=== PATIENT | female | born 1995 | race Caucasian/White ===

== ENCOUNTER 2018-04-14 08:02 | Emergency (ER) | payer OTHER ==
[~2018-04-14] VITALS: Ht 180.3 cm; Wt 142.4 kg
[~2018-04-14 08:02] MED LIST: NUVARING VAGIN1 EACH; PROTONIX40 MG PO
== END 2018-04-14 10:51 | disposition home or self-care (01) ==
LOC: ED 08:02 → FBCO 08:03 → ED 08:03
DX: O99.283 Endocrine, nutritional and metabolic diseases complicating pregnancy, third trimester (principal); E86.0 Dehydration; O99.89 Other specified diseases and conditions complicating pregnancy, childbirth and the puerperium; R55 Syncope and collapse; O99.353 Diseases of the nervous system complicating pregnancy, third trimester; G43.909 Migraine, unspecified, not intractable, without status migrainosus; Z79.899 Other long term (current) drug therapy; Z3A.28 28 weeks gestation of pregnancy
CPT/HCPCS: 80053; 81001; 85025; 96360; 96361; 99284; J7030

== ENCOUNTER 2018-06-24 09:06 | Inpatient (IN) | payer OTHER ==
[~2018-06-24] VITALS: Ht 180.3 cm; Wt 145.0 kg
--- NOTE | ~2018-06-24 | OR ---
[facility] [address], [place] [address] Draft DATE OF OPERATION: 06/24/2018 SURGEON: Marybeth Portillo MD METALLOGRAPHIC TECHNICIAN: Iker Gonzalez MD PREOPERATIVE DIAGNOSES: Term , breech presentation, failed external breech version, probable abruption. POSTOPERATIVE DIAGNOSES: Term , breech presentation, failed external breech version, probable abruption. Delivered. PROCEDURE PERFORMED: External breech version, primary section with low segment transverse uterine incision. ANESTHESIA: Epidural. ESTIMATED BLOOD LOSS: 800 mL. DRAINS: Booker catheter. INDICATIONS AND FINDINGS: The patient is a 22-year-old female, 1, para 0, admitted at 38 and 3/7th weeks for external breech version. She was found to be breech on her evaluation in the office yesterday. She was counseled and the decision was made to proceed with the version. At the time of version, which was done after her epidural. A forward roll was attempted twice with minimal success. Baby's heart tones did look reassuring during that attempt. A reverse roll was then attempted with no success as well. heart tones were reassuring at that point, and as the patient was being prepared to move back to her room, she was found to have a moderate amount of bright red bleeding per vagina. At that point, it was felt that she likely had an abruption and that delivery was indicated at this time. She underwent a primary section with low segment transverse uterine incision with delivery of a little girl from the right sacrum anterior as a bashir breech with Apgars of 8 and 9 and weight of 6 pounds 6 ounces. There was quite a PATIENT NAME: TROY CABALLERO OPERATIVE REPORT DATE OF : [birth year] REPORT #: [id number] PHYSICIAN: MARYBETH PORTILLO MD PCP: MARYBETH PORTILLO MD REPORT IS CONFIDENTIAL AND NOT TO BE RELEASED WITHOUT AUTHORIZATION [facility] [address], [place] [address] Draft bit of bleeding on entering the uterus. There was no obvious abruption with removal of the placenta. The uterus, tubes, and ovaries appeared normal. DESCRIPTION OF PROCEDURE: The patient was prepped and draped in the supine position. A Pfannenstiel skin incision was made and carried down through the fascia. The incision was extended laterally. The inferior and superior fascial flaps were then created. The muscles were bluntly divided and the peritoneum entered bluntly. The incision was extended. The Nguyễn retractor was placed and a knife was used to score the upper aspect of the peritoneal reflection. The baby was delivered with the above findings and handed off to the pediatric staff in attendance. The placenta was removed manually. The uterus explored with a lap tape assuring no remaining fragments. The edges of the incision were identified and the uterus was closed in 2 layers using #0 Monocryl. The first layer was a running locking stitch and the second was a vertical imbricating stitch. A [id number] of this suture was required in the midportion for control of bleeding. The abdomen was then copiously irrigated and inspected and good hemostasis was noted. The retractor was removed and the peritoneum identified. An ACell patch was laid over the lower segment to aid in healing. The peritoneum was then closed with a running suture of 3-0 Vicryl. The muscles were brought together with interrupted sutures of 0 Vicryl. Bleeding points were controlled with cautery. This layer was irrigated, inspected and found to be hemostatic. ACell powder was sprinkled over the muscles to aid in healing. The fascia was then closed from each angle to the midline with a running suture of 0 Vicryl. The subcutaneous tissue was irrigated and bleeding points controlled with cautery. The deep space was closed with interrupted sutures of 3-0 Vicryl. The skin was closed with thuan. All sponge and needle counts were correct. She tolerated the procedure well and was taken to the recovery room in good condition. Marybeth Portillo MD PJW/MODL /[id number] cc: Iker Gonzalez MD Copies: IKER GONZALEZ MD PATIENT NAME: TROY CABALLERO OPERATIVE REPORT DATE OF : [birth year] REPORT #: [id number] PHYSICIAN: MARYBETH PORTILLO MD PCP: MARYBETH PORTILLO MD REPORT IS CONFIDENTIAL AND NOT TO BE RELEASED WITHOUT AUTHORIZATION [address] [address] Draft ~ PATIENT NAME: FEDERICOTROY OPERATIVE REPORT DATE OF : [birth year] REPORT #: [id number] PHYSICIAN: MARYBETH PORTILLO MD PCP: MARYBETH PORTILLO MD REPORT IS CONFIDENTIAL AND NOT TO BE RELEASED WITHOUT AUTHORIZATION
--- NOTE | 2018-06-24 12:50 | NUR ---
06/24/18 1250 Sheets,Aidee 1226 PT ARRIVED TO ROOM DROWSY AND ON RA. PT REPORTS LIM 1/10 AND NO NAUSEA. RESP EVEN AND UNLABORED. FBC RN AT BEDSIDE. IV WNL. 1248 BABY TO CHEST WITH FBC RN. PT CONTINUES TO DENIES NAUSEA AND PAIN /10. PT ABLE TO SLIGHTLY MOVE TOES, SPINAL LEVEL T-8. VSS. PT READY FOR TRANSFER.
--- NOTE | 2018-06-25 06:36 | PR ---
[facility] [address] [place], [place] [address] Signed PP Progress Notes Datetime Report Generated by CPN: 06/25/2018 06:36 SUBJECTIVE: [id number] Pain: Within normal limits Nausea/Vomiting: Denies Flatus: Yes Vital Signs: [id number] Vital Signs: Reviewed; Within Normal Limits Notable Details: UO improving EXAM: [id number] Cardiovascular: Normal Respiratory: Normal Abdomen/Uterus: Abnormal Lochia: Normal Vulva/Perineum: Not Done Breasts: Not Done CVA Tenderness: Not Done Extremities: Normal Incision: Normal Progress: Abnormal Exam Comments: Abdomen with active BS. Fundus firm, nontender at U. last pm H/H 04/06.3, WBC 106, plat 166k this am 9.2/26.7, 9.7, 159k IMPRESSION/PLAN/PROCEDURES: [id number] Impression: Normal progression Other Plans: ambulate, shower, continue to watch UO Progress Notes: UO improving. She is doing well. Will increase ambulation and shower today and work on breast feeding. Signing Physician: Marybeth Portillo MD Copies: ~ *Electronically Signed* 06/25/18 0636 MARYBETH PORTILLO MD PATIENT NAME: TROY CABALLERO PROGRESS NOTE DATE OF : [birth year] PHYSICIAN: MARYBETH PORTILLO MD RPT #: [id number] REPORT IS CONFIDENTIAL AND NOT TO BE RELEASED WITHOUT AUTHORIZATION
--- NOTE | 2018-06-26 09:53 | PR ---
[facility] [address] [facility] [place], [place] [address] Signed PP Progress Notes Datetime Report Generated by TING: 06/26/2018 09:53 SUBJECTIVE: [id number] Pain: Within normal limits Nausea/Vomiting: Denies Flatus: Yes Vital Signs: [id number] Vital Signs: Reviewed; Within Normal Limits Notable Details: UO improving EXAM: [id number] Cardiovascular: Not Done Respiratory: Not Done Abdomen/Uterus: Abnormal Lochia: Normal Vulva/Perineum: Not Done Breasts: Not Done CVA Tenderness: Not Done Extremities: Normal Incision: Normal Progress: Abnormal Exam Comments: Abdomen with active BS. Fundus firm, NT @ U-1. IMPRESSION/PLAN/PROCEDURES: [id number] Impression: Normal progression Plan: consult Other Plans: ambulate, shower, continue to watch UO Progress Notes: Doing well other than breast feeding. Will work on this today with probable D/C in am. Signing Physician: Marybeth Portillo MD Copies: ~ *Electronically Signed* 06/26/18 0953 MARYBETH PORTILLO MD PATIENT NAME: TROY CABALLERO PROGRESS NOTE DATE OF : [birth year] PHYSICIAN: MARYBETH PORTILLO MD RPT #: [id number] REPORT IS CONFIDENTIAL AND NOT TO BE RELEASED WITHOUT AUTHORIZATION
--- NOTE | 2018-06-27 09:53 | PR ---
[facility] [address] [facility] [place], [place] [address] Signed PP Progress Notes Datetime Report Generated by TING: 06/27/2018 09:52 SUBJECTIVE: [id number] Pain: Within normal limits Nausea/Vomiting: Denies Flatus: Yes Vital Signs: [id number] Vital Signs: Reviewed; Within Normal Limits Notable Details: UO improving EXAM: [id number] Cardiovascular: Not Done Respiratory: Not Done Abdomen/Uterus: Abnormal Lochia: Normal Vulva/Perineum: Not Done Breasts: Not Done CVA Tenderness: Not Done Extremities: Normal Incision: Normal Progress: Abnormal Exam Comments: Abdomen with active BS. Fundus firm, NT @ U. IMPRESSION/PLAN/PROCEDURES: [id number] Impression: Normal progression; difficulties Plan: Remove thuan; Discharge Other Plans: ambulate, shower, continue to watch UO Procedures: None Progress Notes: Doing well overall though breast feeding is still challenging. She is ready for D/C. Signing Physician: Marybeth Portillo MD Copies: ~ *Electronically Signed* 06/27/18 0952 MARYBETH PORTILLO MD PATIENT NAME: TROY CABALLERO PROGRESS NOTE DATE OF : [birth year] PHYSICIAN: MARYBETH PORTILLO MD RPT #: [id number] REPORT IS CONFIDENTIAL AND NOT TO BE RELEASED WITHOUT AUTHORIZATION
== END 2018-06-27 14:10 | disposition home or self-care (01) | DRG 786 ==
LOC: FBCO 09:06 → DS 10:30 → FBC 11:25 → EDSTATUS 13:00 → DS 13:00 → FBC 06-27 14:10
PROVIDERS: ADMIT Obstetrics & Gynecology
PROC: 10D00Z1 Extraction of Products of Conception, Low, Open Approach (ICD-10-PCS; principal; 2018-06-24 10:30)
DX: O32.1XX0 Maternal care for breech presentation, not applicable or unspecified (principal); O45.93 Premature separation of placenta, unspecified, third trimester; O99.354 Diseases of the nervous system complicating childbirth; Z3A.38 38 weeks gestation of pregnancy; Z37.0 Single live birth; O99.214 Obesity complicating childbirth; E66.01 Morbid (severe) obesity due to excess calories; O99.344 Other mental disorders complicating childbirth; F32.9 Major depressive disorder, single episode, unspecified; F41.9 Anxiety disorder, unspecified; G43.909 Migraine, unspecified, not intractable, without status migrainosus; Z88.8 Allergy status to other drugs, medicaments and biological substances; Z79.899 Other long term (current) drug therapy
CPT/HCPCS: 01958; 36415; 59412; 80048; 85025; 85027; 85460; C1763; J0690; J1644; J2274; J2300; J2370; J2405; J2590; J3010; J3105; J7040; J7120

== ENCOUNTER 2018-12-02 15:44 | Emergency (ER) | payer OTHER ==
[~2018-12-02] VITALS: Ht 180.3 cm; Wt 136.1 kg
== END 2018-12-02 16:58 | disposition home or self-care (01) ==
LOC: ED 15:44
DX: S81.831A Puncture wound without foreign body, right lower leg, initial encounter (principal); W01.198A Fall on same level from slipping, tripping and stumbling with subsequent striking against other object, initial encounter; G43.909 Migraine, unspecified, not intractable, without status migrainosus
CPT/HCPCS: 73590; 90471; 90715; 99283-25

== ENCOUNTER 2020-08-31 06:43 | Inpatient (IN) | payer OTHER ==
[~2020-08-31] VITALS: Ht 180.3 cm; Wt 156.0 kg
--- NOTE | ~2020-08-31 | OR ---
[facility] [address] [place], [place] [address] Draft DATE OF OPERATION: 09/01/2020 SURGEON: Marybeth Portillo MD SOLE INKER: Leela Weaver DO. PREOPERATIVE DIAGNOSES: Term , previous section, morbid obesity. POSTOPERATIVE DIAGNOSES: Term , previous section, morbid obesity, and delivered. PROCEDURE: Repeat section with low segment transverse uterine incision. ANESTHESIA: Spinal. ESTIMATED BLOOD LOSS: 750 mL. DRAINS: Booker catheter. INDICATIONS AND FINDINGS: The patient is a 24-year-old female, 2, para 1, admitted at 39 weeks for repeat section. Her had been uncomplicated. At the time of surgery, she delivered a little boy via lower segment transverse uterine incision from the ROT position with Apgars of 9 and 9 and weight of 7 pounds 1 ounce. There was a loose nuchal cord x1. The uterus, tubes, ovaries, and placenta were normal. There were minimal omental adhesions to the peritoneum. DESCRIPTION OF PROCEDURE: The patient was prepped and draped in the supine position. A repeat Pfannenstiel skin incision was made and carried down to the fascia. The incision was extended laterally. The inferior and superior fascial flaps were then created. The muscles were bluntly divided. The peritoneum opened sharply and the incision extended superiorly and inferiorly. The Nguyễn retractor was then placed. The uterine incision was made at the upper aspect of the peritoneal reflection. The baby was delivered with the above PATIENT NAME: TROY CABALLERO OPERATIVE REPORT DATE OF : [birth year] REPORT #: [id number] PHYSICIAN: MARYBETH PORTILLO MD PCP: MARYBETH PORTILLO MD REPORT IS CONFIDENTIAL AND NOT TO BE RELEASED WITHOUT AUTHORIZATION [facility] [address] [place] [id number] Draft findings and handed off to the pediatric staff in attendance. The placenta was removed manually. The uterus explored with a lap tape assuring no remaining fragments. There was some initial atony which did respond to the IV Pitocin and massage. The edges of the incision were identified and the uterus was closed in 2 layers using 0 Monocryl. The first layer was a running locking stitch and second was a vertical imbricating stitch. Following this, this layer was irrigated and inspected and good hemostasis was noted. The retractor was removed. The peritoneum was identified and an ACell graft was laid over the lower segment to aid in healing. The peritoneum was then closed with a running suture of 3-0 Vicryl. The muscles were brought together with interrupted sutures of 0 Vicryl. Bleeding points were controlled with cautery. This area was irrigated and hemostasis was noted. ACell powder was sprinkled over the muscles to aid in healing. Following this, the fascia was closed from each angle to the midline with a running suture of 0 Vicryl. The subcu space was irrigated and bleeding points controlled with cautery. The deep space was closed with interrupted sutures of 3-0 Vicryl. The skin was closed with thuan. All sponge and needle counts were correct. The patient tolerated the procedure well and was taken to the recovery room in good condition. Marybeth Portillo MD PJW/MODL /[id number] cc: Leela Weaver DO Copies: LEELA WEAVER DO ~ PATIENT NAME: TROY CABALLERO OPERATIVE REPORT DATE OF : [birth year] REPORT #: [id number] PHYSICIAN: MARYBETH PORTILLO MD PCP: MARYBETH PORTILLO MD REPORT IS CONFIDENTIAL AND NOT TO BE RELEASED WITHOUT AUTHORIZATION
--- NOTE | 2020-09-01 08:36 | NUR ---
09/01/20 0836 Za Grullon 0826- PT ARRIVES TO [facility] ROOM #103. PT REPORTS NO PAIN OR NAUSEA. RESP EVEN AND UNLABORED. OXYGEN SAT HIGH 90'S TO 100% ON RA. 20G RIGHT HAND IV INFUSING WELL WITH LR AND 30 UNITS OF PITOCIN. PT REPORTS NO PAIN TO THE SITE. ERICH RN AT THE BEDSIDE ASSISTING PT WITH BREAST FEEDING.
--- NOTE | 2020-09-01 20:15 | PR ---
[facility] [address] [facility] [place], [place] [address] Signed PP Progress Notes Datetime Report Generated by CPMercedez: 09/01/2020 18:04 SUBJECTIVE: [id number] Pain: Within Normal Limits Pain Comments: Has some nausea and dizziness with movement of head _ sitting Flatus: Yes Vital Signs: [id number] Vital Signs: Reviewed; Within Normal Limits Notable Details: UO borderline and quite daniel but urine is much clearer in the tube Cardiovascular: Normal Abdomen/Uterus: Abnormal Lochia: Normal Vulva/Perineum: Not Done Breasts: Not Done CVA Tenderness: Not Done Extremities: Normal Incision: Normal Progress: Normal Exam Comments: Abdomen with active BS. Fundus firm, sl tender @ U-1. H/H 9.9/29.3 now and previously 11.2/33.4 IMPRESSION/PLAN/PROCEDURES: [id number] Other Impression: "dizziness" Other Plans: Scop patch, meclizine Progress Notes: Overall her VS are very stable without any increase in HR or decrease in BP. I suspect her symptoms are related to vertigo as she has symptoms with head movement while lying in bed. Her UO has been borderline but urine appears much clearer in the tube now. I do not think she has a source of bleeding causing her current symptoms but will recheck labs approx 9 pm and follow closely. Signing Physician: Marybeth Portillo MD Copies: ~ *Electronically Signed* 09/01/20 1809 MARYBETH PORTILLO MD PATIENT NAME: TROY CABALLERO PROGRESS NOTE DATE OF : [birth year] PHYSICIAN: MARYBETH PORTILLO MD RPT #: [id number] REPORT IS CONFIDENTIAL AND NOT TO BE RELEASED WITHOUT AUTHORIZATION
--- NOTE | 2020-09-02 10:08 | PR ---
[facility] [address] [facility] [place], [place] [address] Signed PP Progress Notes Datetime Report Generated by CPN: 09/02/2020 10:08 SUBJECTIVE: [id number] Pain: Within Normal Limits Pain Comments: Has some nausea and dizziness with movement of head _ sitting Nausea/Vomiting: Denies Flatus: Yes Vital Signs: [id number] Vital Signs: Reviewed; Within Normal Limits Notable Details: UO borderline and quite daniel but urine is much clearer in the tube EXAM: Ongoing Cardiovascular: Normal Respiratory: Normal Abdomen/Uterus: Abnormal Lochia: Normal Vulva/Perineum: Not Done Breasts: Not Done CVA Tenderness: Not Done Extremities: Normal Incision: Normal Progress: Normal Exam Comments: Abdomen with active BS. Fundus firm, NT @ U-1. H/H 9.4/27.1, WBC 7.9, plat 155k IMPRESSION/PLAN/PROCEDURES: [id number] Impression: Normal Progression Other Impression: "dizziness" Other Plans: increase ambulation, shower Progress Notes: Doing well. She is feeling much better. Signing Physician: Marybeth Portillo MD Copies: ~ *Electronically Signed* 09/02/20 1008 MARYBETH PORTILLO MD PATIENT NAME: TROY CABALLERO PROGRESS NOTE DATE OF : [birth year] PHYSICIAN: MARYBETH PORTILLO MD RPT #: [id number] REPORT IS CONFIDENTIAL AND NOT TO BE RELEASED WITHOUT AUTHORIZATION
--- NOTE | 2020-09-03 08:40 | PR ---
[facility] [address] [facility] [place], [place] [address] Signed PP Progress Notes Datetime Report Generated by CPMercedez: 09/03/2020 08:40 SUBJECTIVE: [id number] Pain: Within Normal Limits Pain Comments: Has some nausea and dizziness with movement of head _ sitting Nausea/Vomiting: Denies Flatus: Yes Vital Signs: [id number] Vital Signs: Reviewed; Within Normal Limits Notable Details: UO borderline and quite daniel but urine is much clearer in the tube EXAM: Ongoing Cardiovascular: Normal Respiratory: Not Done Abdomen/Uterus: Abnormal Lochia: Normal Vulva/Perineum: Not Done Breasts: Not Done CVA Tenderness: Not Done Extremities: Normal Incision: Normal Progress: Normal Exam Comments: Abdomen with active BS. Fundus firm, NT @ U-1. IMPRESSION/PLAN/PROCEDURES: [id number] Impression: Normal Progression Other Impression: "dizziness" Plan: Discharge Other Plans: increase ambulation, shower Procedures: None Progress Notes: Doing well overall but taking large amounts of narcotics and this is discussed. She is ready for D/C otherwise. Signing Physician: Marybeth Portillo MD Copies: ~ *Electronically Signed* 09/03/20839 MARYBETH PORTILLO MD PATIENT NAME: TROY CABALLERO PROGRESS NOTE DATE OF : [birth year] PHYSICIAN: MARYBETH PORTILLO MD RPT #: [id number] REPORT IS CONFIDENTIAL AND NOT TO BE RELEASED WITHOUT AUTHORIZATION
== END 2020-09-03 11:10 | disposition home or self-care (01) | DRG 788 ==
LOC: FBC 09-01 04:44
PROVIDERS: ADMIT Obstetrics & Gynecology; ATTEND Obstetrics & Gynecology
PROC: 10D00Z1 Extraction of Products of Conception, Low, Open Approach (ICD-10-PCS; principal; 2020-09-01 06:45)
DX: O34.211 Maternal care for low transverse scar from previous cesarean delivery (principal); N85.8 Other specified noninflammatory disorders of uterus; Z3A.39 39 weeks gestation of pregnancy; Z37.0 Single live birth; O99.214 Obesity complicating childbirth; E66.01 Morbid (severe) obesity due to excess calories; O69.81X0 Labor and delivery complicated by cord around neck, without compression, not applicable or unspecified; O32.2XX0 Maternal care for transverse and oblique lie, not applicable or unspecified; O99.893 Other specified diseases and conditions complicating puerperium; R42 Dizziness and giddiness; Z88.8 Allergy status to other drugs, medicaments and biological substances
CPT/HCPCS: 36415; 85025; 85027; J0690; J1644; J2001; J2274; J2300; J2405; J2590; J7121

== ENCOUNTER 2021-12-14 10:14 | Emergency (ER) | payer OTHER ==
[2021-12-14] MEDS ORDERED: PRILOSEC OTC20 MG PO (10:31)
[2021-12-14] MEDS ORDERED: OMEPRAZOLE40 MG PO (12:20)
[2021-12-14] MEDS ORDERED: ONDANSETRON ODT8 MG PO (12:20)
== END 2021-12-14 12:53 | disposition home or self-care (01) ==
LOC: ED 10:14
DX: K21.9 Gastro-esophageal reflux disease without esophagitis (principal); G43.909 Migraine, unspecified, not intractable, without status migrainosus; Z88.8 Allergy status to other drugs, medicaments and biological substances; Z79.899 Other long term (current) drug therapy
CPT/HCPCS: 36415; 76705; 80053; 81001; 83690; 84703; 85025; 96361; 96374; 96375; 99284-25; J1885; J2405; J7030

== ENCOUNTER 2023-11-09 06:34 | Emergency (ER) | payer BC ==
[~2023-11-09] VITALS: Ht 180.3 cm; Wt 158.0 kg
[~2023-11-09 06:34] MED LIST changes: +LOMOTIL TABLET1 EACH PO; +OMEPRAZOLE40 MG PO; +ONDANSETRON ODT8 MG PO; +PRILOSEC OTC20 MG PO
[2023-11-09 06:56] LABS: BILIRUBIN, URINE NEGATIVE (negative); BLOOD/HGB, URINE SMALL (Negative); KETONE, URINE NEGATIVE (Negative); LEUK ESTERASE, URINE NEGATIVE (negative); NITRITE, URINE NEGATIVE (negative)
[2023-11-09 06:59] LABS: BASOPHILS 0.6 % (0-2); EOSINOPHILS 1.9 % (0-6); HEMATOCRIT 36.4 % (35.0-50.0); HEMOGLOBIN 11.9 g/dL (12.0-18.0); LYMPHOCYTES 28.4 % (24-44); MCH 26.1 (27-36); MCHC 32.8 g/dl (30-36); MCV 79.7 fl (81-99); MONOCYTES 5.5 % (0-12); NEUTROPHILS 63.6 % (39-80); PLATELET COUNT 237 K/uL (140-440); RBC 4.57 M/ul (4.3-5.7); RDW 16.3 (10.5-15.0)
[2023-11-09] MEDS ORDERED: MORPHINE SULFATE 4 MG/ML VIAL IV ONE (07:00)
[2023-11-09] MEDS ORDERED: ondansetron HCL 4 MG/2 ML VIAL IV ONE (07:00)
[2023-11-09] MEDS ORDERED: SODIUM CHLORIDE 0.9% 1,000 ML IV ONE (07:00)
[2023-11-09 07:03] LABS: BACTERIA, URINE 1+ /hpf (negative); CASTS, URINE NONE SEEN \\lpf; CRYSTALS, URINE NONE SEEN (0-1+); EPITHELIAL CELLS, URINE SQUAMOUS 1+ /lpf (0-1+)
[2023-11-09 07:04] LABS: COLLECTION TYPE, URINE CLEAN CATCH; REFLEX CULTURE, URINE No (No)
[2023-11-09 07:18] LABS: ALBUMIN 3.9 g/dL (3.4-5.0); ALBUMIN/GLOBULIN RATIO 0.98 (1.1-2.4); ANION GAP 13.4 (7-21); BILIRUBIN, TOTAL 0.6 ng/dL (0.2-1.0); BUN/CREATININE RATIO 12.63 (6.0-28.6); CALCIUM 9.5 mg/dL (8.5-10.1); CREATININE, SERUM 0.95 mg/dL (0.55-1.02); POTASSIUM 3.4 mmol/L (3.5-5.1); PROTEIN, TOTAL 7.9 g/dL (6.4-8.2)
[2023-11-09 08:24] VITALS: BP 118/67
== END 2023-11-09 08:26 | disposition home or self-care (01) ==
LOC: ED 06:34
PROVIDERS: Family Medicine
DX: R10.11 Right upper quadrant pain (principal); R10.13 Epigastric pain; G43.909 Migraine, unspecified, not intractable, without status migrainosus; Z88.6 Allergy status to analgesic agent
CPT/HCPCS: 36415; 74177; 80053; 81001; 83690; 84703; 85025; 96361; 96375; 99284-25; J2270; J2405; J7030; Q9967

== ENCOUNTER 2024-08-19 09:21 | Inpatient (IN) | payer OTHER ==
[2024-08-19] VITALS (8 sets, daily range): BP systolic 117–158; BP diastolic 83–96
[~2024-08-19] VITALS: Ht 180.3 cm; Wt 156.7 kg
[~2024-08-19 09:21] MED LIST changes: +DICYCLOMINE HCL20 MG PO
[2024-08-19 10:42] LABS: BILIRUBIN, URINE NEGATIVE (negative); BLOOD/HGB, URINE MODERATE (Negative); KETONE, URINE NEGATIVE (Negative); LEUK ESTERASE, URINE NEGATIVE (negative); NITRITE, URINE NEGATIVE (negative); PH, URINE 6.5 (5-7)
[2024-08-19 10:54] LABS: CRYSTALS, URINE NONE SEEN (0-1+); EPITHELIAL CELLS, URINE NONE SEEN /lpf (0-1+); WHITE BLOOD CELLS, URINE 0-1 /HPF (0-5)
[2024-08-19 10:54] LABS: ALBUMIN 3.2 g/dL (3.4-5.0); ALBUMIN/GLOBULIN RATIO 0.84 (1.1-2.4); ANION GAP 11.1 (7-21); BILIRUBIN, TOTAL 0.3 mg/dL (0.2-1.0); BUN/CREATININE RATIO 12.16 (6.0-28.6); CALCIUM 8.8 mg/dL (8.5-10.1); CREATININE, SERUM 0.74 mg/dL (0.55-1.02); POTASSIUM 4.1 mmol/L (3.5-5.1)
[2024-08-19 10:55] LABS: BACTERIA, URINE NONE SEEN /hpf (negative); CASTS, URINE NONE SEEN \\lpf; COLLECTION TYPE, URINE CLEAN CATCH; REFLEX CULTURE, URINE No (No)
[2024-08-19] MEDS ORDERED: SEVOFLURANE 250 ML BTL INH ONE (11:43)
[2024-08-19 11:57] LABS: BASOPHILS 0.3 % (0-2); EOSINOPHILS 1.3 % (0-6); HEMATOCRIT 34.4 % (35.0-50.0); HEMOGLOBIN 11.8 g/dL (12.0-18.0); LYMPHOCYTES 23.3 % (24-44); MCH 27.4 (27-36); MCHC 34.3 g/dl (30-36); MCV 79.9 fl (81-99); MONOCYTES 5.2 % (0-12); NEUTROPHILS 69.9 % (39-80); PLATELET COUNT 226 K/uL (140-440); RBC 4.31 M/ul (4.3-5.7)
[2024-08-19] MEDS ORDERED: metroNIDAZOLE/SODIUM CHLORIDE 500 MG/100 ML PIGGYBACK IV ONE (13:30)
[2024-08-19] MEDS ORDERED: CEFAZOLIN SODIUM 2 GM/20 ML SYR IV ONE (13:30)
[2024-08-19] MEDS ORDERED: metroNIDAZOLE/SODIUM CHLORIDE 500 MG/100 ML PIGGYBACK IV SCH ×2 (14:00→22:00)
[2024-08-19] MEDS ORDERED: CEFAZOLIN SODIUM 2 GM/20 ML SYR IV SCH (14:00)
--- NOTE | 2024-08-19 15:58 | NUR ---
PATIENT ADMISSION ASSESSMENT COMPLETED. PATIENT IS ALERT AND ORIENTED X4 AND IS INDEPENDENT IN THE ROOM. CARDIAC IS NORMAL WITH S1-S2 NOTED. RADIAL AND PEDAL PULSES ARE STRONG IN UPPER AND LOWER EXTREMETIES. NO EDEMA NOTED, PATIENT DENIES ANY NUMBNESS OR TINGLING IN UPPER OR LOWER EXTREMETIES. PATIENT IS 100% ON ROOM AIR AND LUNG SOUNDS ARE CLEAR THROUGHOUT. PATIENT IS NPO AT THIS TIME FOR SURGERY. BOWEL TONES ARE ACTIVE IN ALL 4 QUADRANTS. LAST BM WAS 08/18/24. PATIENT DENIES ANY URINARY SYMPTOMS AT THIS TIME. PATIENT STATES ABD PAIN IS "OKAY" WHEN LAYING DOWN, BUT INCREASES WITH ACTIVITY. PATIENT HAS ALLERGY TO IBUPROFEN. CAP REFILL IS <3 SECONDS IN UPPER AND LOWER EXTREMETIES. PATIENT DENIES ANY FURTHER NEEDS AT THIS TIME. CALL LIGHT AND PERSONAL BELONGINGS WITHIN REACH.
[2024-08-19] MEDS ORDERED: LACTATED RINGER'S 1,000 ML IV ONE ×2 (16:00→20:04)
[2024-08-19] MEDS ORDERED: MORPHINE SULFATE 10 MG/ML VIAL IV PRN (16:00)
[2024-08-19] MEDS ORDERED: LACTATED RINGER'S 1,000 ML IV SCH ×2 (16:00→16:15)
[2024-08-19] MEDS ORDERED: ondansetron HCL 4 MG/2 ML VIAL IV PRN ×3 (16:00→20:15)
--- NOTE | 2024-08-19 16:09 | NUR ---
MED REC COMPLETE
[2024-08-19] MEDS ORDERED: MORPHINE SULFATE 4 MG/ML VIAL IV PRN (16:15)
--- NOTE | 2024-08-19 16:30 | NUR ---
PATIENT CHG WIPE DOWN COMPLETED, FRESH GOWN PROVIDED. PATIENT IS RESTING IN BED. PATIENT REPORTS HEADACHE 12/16. PATIENT DENIES ANY FURTHER NEEDS AT THIS TIME. CALL LIGHT AND PERSONAL BELONGINGS WITHIN REACH.
--- NOTE | 2024-08-19 17:21 | NUR ---
PATIENT REPORTED PAIN 3/10 AFTER RECEIVING THE IV MORPHINE. IV SITE IS CLEAN, DRY, AND INTACT. BOLUS IS INFUSING AT THIS TIME. PATIENT WITH SEVERAL VISITORS IN THE ROOM. PATIENT STATED NO FURTHER NEEDS AT THIS TIME. CALL LIGHT AND PERSONAL BELONGINGS ARE WITHIN REACH.
--- NOTE | 2024-08-19 18:00 | NUR ---
PATIENT LAYING IN BED WITH VISITORS AT BEDSIDE. NEW BAG OF FLUIDS HUNG AND INFUSING AT 85MLS/HR. PATIENT WITH NO FURTHER NEEDS AT THIS TIME. CALL LIGHT AND PERSONAL BELONGINGS WITHIN REACH.
--- NOTE | 2024-08-19 18:05 | NUR ---
PATIENT IS IN BED AT THIS TIME, SHE IS NPO, TURN DOWN WORKER CHARTED VITALS. CALL LIGHT WITH IN REACH, TURN DOWN WORKER GOT A WARM BLANKET AND NOTHING ELSE NEEDED AT THIS TIME.
[2024-08-19] MEDS ORDERED: fentaNYL citrate 100 MCG/2 ML VIAL ONE ×2 (18:46→21:14)
[2024-08-19] MEDS ORDERED: KETAMINE in NS 50 MG/5 ML SYR ONE (18:46)
[2024-08-19] MEDS ORDERED: ROCURONIUM BROMIDE 50 MG/5 ML SYR ONE ×2 (18:46→19:52)
[2024-08-19] MEDS ORDERED: ACETAMINOPHEN 1,000 MG/100 ML VIAL ONE (18:46)
[2024-08-19] MEDS ORDERED: LIDOCAINE HCL 2% 5 ML SDV ONE (18:46)
[2024-08-19] MEDS ORDERED: propofoL 200 MG/20 ML VIAL ONE ×2 (18:46→21:54)
[2024-08-19] MEDS ORDERED: dexmedeTOMIDine HCl 200 MCG/2 ML VIAL ONE (18:46)
[2024-08-19] MEDS ORDERED: SUGAMMADEX SODIUM 200 MG/2 ML ML ONE (18:46)
[2024-08-19] MEDS ORDERED: SUCCINYLCHOLINE IN 0.9% NACL 200 MG/10 ML SYRINGE ONE (18:46)
[2024-08-19] MEDS ORDERED: DEXAMETHASONE SOD PHOS 4 MG/ML VIAL ONE (18:46)
[2024-08-19] MEDS ORDERED: ondansetron HCL 4 MG/2 ML VIAL ONE (18:46)
[2024-08-19] MEDS ORDERED: LIDOCAINE HCL 2% 20 MG/ML VIAL INJ ONE (18:46)
[2024-08-19] MEDS ORDERED: MIDAZOLAM HCL 2 MG/2 ML VIAL ONE ×2 (18:47→21:14)
[2024-08-19] MEDS ORDERED: METOCLOPRAMIDE HCL 10 MG/2 ML SDV ONE (18:48)
--- NOTE | 2024-08-19 18:48 | NUR ---
PATIENT IN BED AT THIS TIME. SPEECH LANGUAGE PATHOLOGIST PRN ASSISTED PATIENT TO BATHROOM AND THEN BACK TO BED. CALL LIGHT WITHIN REACH, NO FURTHER NEEDS AT THIS TIME.
[2024-08-19] MEDS ORDERED: CEFAZOLIN SOD 1,000 MG/10 ML VIAL ONE (19:17)
--- NOTE | 2024-08-19 19:24 | NUR ---
RECEIVED REPORT FROM PARAS RN. PT NOT IN ROOM, CURRENTLY IN SURGERY.
[2024-08-19] MEDS ORDERED: IBLOOD GLUCOSE TEST STRIP 1 EA TEST VI PRN (20:15)
[2024-08-19] MEDS ORDERED: PROCHLORPERAZINE EDISYLATE 10 MG/2 ML VIAL IV PRN (20:15)
[2024-08-19] MEDS ORDERED: fentaNYL citrate 50 MCG/ML SDV IV PRN (20:15)
[2024-08-19] MEDS ORDERED: HYDROmorphone HCL 1 MG/ML SYR IV PRN (20:15)
[2024-08-19] MEDS ORDERED: NALOXONE HCL 0.4 MG SYR IV PRN (20:15)
[2024-08-19] MEDS ORDERED: droPERidol 5 MG/2 ML VIAL IV PRN (20:15)
[2024-08-19] MEDS ORDERED: FAMOTIDINE 20 MG/ 2 ML VIAL IV SCH (21:00)
[2024-08-19] MEDS ORDERED: BUPIVACAINE 0.75% IN DEXTROSE 2 ML AMP ONE (21:13)
--- NOTE | 2024-08-19 21:34 | NUR ---
08/19/242133 Tamy Bates 2056- PT ARRIVES TO PACU, SEMI PAEZ POSITION. O2 AT 6L PER MASK, PT MOVING AIR BUT SNORING RESPIRATIONS WITH INTERMITTENT NEED FOR HEAD POSITION CHANGES AND JAW LIFT. LR INFUSING TO LAC IV. ABD SOFT, NON DISTENDED. STERI STRIPS TO INCISIONS, PHI DRAIN TO RLQ ABD. PT NON REACTIVE TO STIMULUS AT THIS TIME, ALL MONITORS IN PLACE. 2101- PT WAKES TO TACTILE AND VERBAL STIMULI, REORIENTED TO TIME AND PLACE. PT STARTING TO MOVE LEGS AND ARMS AROUND, HOLDING ABD. NODS HEAD YES WHEN ASKED ABOUT PAIN. PT DENIES NAUSEA. 2104- P PAIN 8/10, PT MEDICATED WITH FENTANYL. 2110- PT PAIN DOWN TO 7/10, MEDICATED WITH 2ND DOSE FENTANYL. 2115- PT MOVED TO ROOM AIR AT THIS TIME. 2119- DR MOORE AT BEDSIDE, PT C/O INCREASING PAIN. 2125- PAIN 8/10, BURNING. PT HAVING A HARD TIME HOLDING STILL. MEDICATED WITH DILAUDID AT THIS TIME. 2133- PT RESTING AFTER DILAUDID, NO SIGNS OF DISTRESS. BREATHING EVEN AND NON LABORED.
[2024-08-19] MEDS ORDERED: ACETAMINOPHEN 500 MG TAB PO PRN (22:00)
[2024-08-19] MEDS ORDERED: CEFAZOLIN SODIUM 3 GM/30 ML SYR IV SCH (22:00)
[2024-08-19] MEDS ORDERED: HYDROCODONE/ACETA 5/325 TAB PO PRN (22:00)
--- NOTE | 2024-08-19 22:15 | NUR ---
PT RECEIVED TO ROOM 107 VIA HOSPITAL BED FROM PACU. RECEIVED REPORT FROM LEAH HERNANDEZ. FAMILY IN ROOM W/ PT. PT REPORTS RIGHT ABD PAIN, PRN MORPHINE ADMINISTERED PER EMAR. LR FROM PACU INFUSING TO LAC IV. VSS. LSC. ON RA. HRR. BT HYPO, ABD MILDLY DISTENDED, TENDER. DENIES FLATUS OR BURPING. NO NAUSEA. ICE WATER PROVIDED, ENC SLOW INTAKE. 3 LAP SITES TO ABD W/ STERI STRIPS. 1 DRSG AT UMBILICUS CDI. RIGHT ABD PHI DRAIN W/ SMALL AMT SEROSANG DRNG. DUE TO VOID. CALL LIGHT WITHIN REACH. PT DEALING W/ SOME FAMILY DRAMA/ISSUES W/ HELP OF VISITORS, PT MILDLY ANXIOUS.
--- NOTE | 2024-08-19 22:54 | NUR ---
PT REPORTS INT RIGHT ABD PAIN ONGOING, 01/16. VISITING W/ FAMILY. IVF INFUSING.
--- NOTE | 2024-08-19 23:16 | NUR ---
PT AWAKE, RESTING. NO COMPLAINTS AT THIS TIME. TOLERATED A SMALL AMT OF ICE WATER.
[2024-08-20] VITALS (12 sets, daily range): BP systolic 116–143; BP diastolic 71–95
--- NOTE | 2024-08-20 01:31 | NUR ---
POST-OP VS COMPLETED. PT C/O RIGHT ABD PAIN 12/16-MEDICATED W/ PRN IV MORPHINE 2MG. PT SBA TO BR, VOID WNL. NO HAT IN TOILET-NO MEASUREMENT. HAT PLACED FOR I&O'S. PT PROVIDED W/ APPLE JUICE PER REQUEST. IVF INFUSING. FRIEND AT BEDSIDE.
--- NOTE | 2024-08-20 03:40 | NUR ---
SLEEPING SOUNDLY. APPEARS COMFORTABLE.
--- NOTE | 2024-08-20 05:23 | NUR ---
BATHROOM CALL DEBI ANWERED. PT SBA BACK TO BED. PHI DRAIN EMPTIED. VITALS AND I&O OBTAINED AND DOCUMENTED. PT GIVEN APPLE JUICE UPON REQUEST. PT STATES NO FURTHER NEEDS AT THIS TIME. CALL LIGHT WITHIN REACH.
[2024-08-20 05:25] LABS: BASOPHILS 0.2 % (0-2); HEMATOCRIT 32.6 % (35.0-50.0); HEMOGLOBIN 11.2 g/dL (12.0-18.0); LYMPHOCYTES 6.3 % (24-44); MCH 27.4 (27-36); MCHC 34.3 g/dl (30-36); MCV 79.9 fl (81-99); MONOCYTES 1.8 % (0-12); NEUTROPHILS 91.7 % (39-80); PLATELET COUNT 231 K/uL (140-440); RBC 4.08 M/ul (4.3-5.7); RDW 15.8 (10.5-15.0)
[2024-08-20 05:38] LABS: ANION GAP 12.2 (7-21); BUN/CREATININE RATIO 12.19 (6.0-28.6); CALCIUM 8.8 mg/dL (8.5-10.1); CREATININE, SERUM 0.82 mg/dL (0.55-1.02); POTASSIUM 4.2 mmol/L (3.5-5.1)
--- NOTE | 2024-08-20 05:51 | NUR ---
PT AWAKE. REPORTS 11/16 RIGHT ABD PAIN-MEDICATED W/ PRN NORCO. JELLO AND CHICKEN BROTH PROVIDED. BT HYPO X 4. NO NAUSEA. NO FLATUS. 3 LAP SITES W/ STERI STRIPS AND DRIED DRNG. BANDAID AT UMBILICUS CDI. RIGHT ABD PHI DRAIN W/ SEROSANG DRNG.
--- NOTE | 2024-08-20 08:38 | NUR ---
Patient awake sitting up in chair, alert and oriented x4. Patient reports pain level of 5/10, tolerable per pt. Patient tolerated breakfast well, no nausea. Lap sites intact, Lucila drain intact/patient-serosang drainage noted. Patient reports she will take a walk in hallway shortly. No needs at this time, personal supplies and call light within reach.
--- NOTE | 2024-08-20 08:50 | NUR ---
INTO SEE PATIENT. PERSONAL INFORMATION REVIEWED. PATIENT LIVES WITH FATHER. 2 STEPS INTO THE HOUSE AND STAIRS IN THE HOUSE. DENIES DIFFCULTY DOING THEM. DOES NOT HAVE DME. DRIVES AT BASELINE. BOYFRIEND TROY TO PICK HER UP AT TIME OF DISCHARGE. DENIES DIFFCULTY PAYING UTLITIES OR OBTAINING FOOD. NO OTHER CM NEEDS AT THIS TIME.
[2024-08-20] MEDS ORDERED: FAMOTIDINE 20 MG TAB PO SCH (09:00)
--- NOTE | 2024-08-20 09:11 | NUR ---
PATIENT IS IN HER CHAIR AT THIS TIME, FRONT OFFICE CLERK CHARTED VITALS AND I&O'S, GOT A WASH CLOTH FOR PATIENT, CLEANED HER ROOM UP A BIT. CALL LIGHT WITH IN REACH AND NOTHING ELSE NEEDED AT THIS TIME.
--- NOTE | 2024-08-20 09:58 | NUR ---
UR CLINICAL RE[place]: [facility] [place]NCOUNTER INACTIVE. MEETS CRITERIA FOR APPENDECTOMY WITHOUT ABSCESS/PERFORATION, CT POSITIVE FOR APPENDICITIS. NEED FOR IV FLUIDS, SURGICAL INTERVENTION, IV ANTIBIOTICS, ELY DRAIN. [facility] INPT 08/19/2024 @ 1318 ORDER MATCHES REG AUTH PENDING, WILL SEND CLINICALS FOR REVIEW PLAN TO [facility] WHEN MEDICALLY STABLE. 08/22/24
--- NOTE | 2024-08-20 10:19 | NUR ---
Two tabs norco 5/325mg po admin with snack for reports of 7/10 abdominal pain.
--- NOTE | 2024-08-20 12:40 | NUR ---
PATIENT IS IN BED AT THIS TIME RESTING, NO PAIN AT THIS TIME. MEDICAL RECORDS TECHNICIAN CHARTED VITALS AND I&O'S, CALL LIGHT WITH IN REACH AND NOTHING ELSE NEEDED AT THIS TIME.
[2024-08-20] MEDS ORDERED: HYDROCODON-ACE1 EA10 PO (14:37)
[2024-08-20] MEDS ORDERED: ACETAMINOPHEN500 MG PO (14:38)
--- NOTE | 2024-08-20 14:49 | NUR ---
VERIFIED WITH DR. MOORE - PT DOES NOT NEED IV ABX THAT ARE SCHEDULED AT 1400. PRIMARY RN NOTIFIED WELL.
--- NOTE | 2024-08-20 15:02 | NUR ---
Patient standing walking in room. New order obtained for patient to discharge home. Discharge education provided to patient at this time. Patient verbalized her understanding.
[2024-08-20] MEDS ORDERED: CEFAZOLIN SODIUM 3 GM/30 ML SYR IV SCH (16:15)
--- NOTE | 2024-08-22 07:47 | OR ---
[facility] [address], [place] [address] Signed DATE OF OPERATION: 08/19/2024 SURGEON: Violetta Moore MD PREOPERATIVE DIAGNOSES: 1. Acute appendicitis. 2. Morbid obesity. POSTOPERATIVE DIAGNOSES: Severe acute and chronic appendicitis with dense scarring to the abdominal wall and ileum. PROCEDURE: Laparoscopic appendectomy, prolonged complicated and difficult. ANESTHESIA: General endotracheal, Adin Deng CRNA and local 10 mL of 0.25% Marcaine with epinephrine. INDICATIONS: This 28-year-old white woman presents to the emergency room earlier in the day and was evaluated by Dr. John Lacey, emergency room physician. She is a patient of [facility]. Evaluation included a CT scan of the abdomen, which confirmed inflammatory changes in the right lower quadrant and findings of appendicitis with secondary thickening of the ileum related to the location of the appendix. She has been fluid resuscitated given intravenous antibiotics and now to undergo appendectomy prep by laparoscopic approach. She understands the risk of bleeding, infection, need for open procedure and need for other indicated procedures and wished to proceed. FINDINGS: Indeed the appendix was quite markedly inflamed, but it was also chronically inflamed and coiled into a misshapen configuration nestled behind the terminal ileum and nearly contiguous width initially. Extensive dissection was required to separate safely the ileum and cecum from the abdominal wall in the ileum from the appendix proper. Ultimately this was accomplished and complete appendectomy was performed. It was not perforated, but quite markedly densely inflamed. It is uncertain if this represents any neoplasm to the area, but I think it unlikely actually. The terminal ileum itself was entirely normal and vascularity to it was preserved. A drain was placed. DESCRIPTION OF PROCEDURE: Electronically Signed By: VIOLETTA MOORE MD 08/22/24 0747 PATIENT NAME: TROY CABALLERO OPERATIVE REPORT DATE OF : [birth year] REPORT #: [id number] PHYSICIAN: VIOLETTA MOORE MD PCP: SHAY LOFTON PA-C REPORT IS CONFIDENTIAL AND NOT TO BE RELEASED WITHOUT AUTHORIZATION [facility] [address], [place] [address] Signed The patient was brought to the operating room, given a general endotracheal anesthetic. Preoperative antibiotic Ancef and Flagyl were given previously and Ancef given immediately prior to operation proper. The abdomen was prepared with a chlorhexidine solution and draped sterilely. An infraumbilical incision was made and using an open Radha cannula technique, the abdomen was entered. Pneumoperitoneum achieved to a level of 14 mmHg of carbon dioxide gas. Intra-abdominal inspection showed no sign of ascites or carcinomatosis. The appendix was not apparent at that time. There were fair amount of adhesions to the uterus and lower pelvic organs. Cephalad view showed a distended, but not acutely inflamed gallbladder and relatively normal liver. An epigastric port was initially placed, but due to adhesions of omentum and the transverse colon, the position was not optimal. The trocar was not fully placed and examination showed likely to be encumbered by the mesocolon of the transverse colon and therefore a repeat trocar placement under direct visualization more to the right of midline was undertaken. This allowed for good visualization and the camera was replaced to that site. Single hand manipulation through the umbilical port did ultimately show dense inflammatory changes of the terminal ileum and cecum to the right pelvic wall more so than usual. This did not represent anatomic fusion actually. Through a right lower quadrant incision, a 5 mm trocar placement and two-hand manipulation was undertaken. It was clear that the appendix was nestled between the terminal ileum and behind the cecum somewhat. The peritoneum overlying the cecum and the ileum was freed from the abdominal wall laterally. Using various maneuvers including blunt dissection, the ileum and cecum and the inflamed appendix could be mobilized away from it. Ultimately, a plane was developed between the ileum and the appendix preserving the ileal mesentery and avoiding injury to the ileum proper. The mesoappendix was quite markedly thickened and chronically inflamed. A window was created in the mesoappendix allowing for transection with an Endo-RAOUL stapling device with a staple load. This allowed for more mobility of the appendix, which was ultimately elevated well and the base of the appendix easily identified. Using the Endo-RAOUL stapling device, it was transected, flushed with the cecum. The appendix was placed in an endobag and extracted through the infraumbilical port site. It was palpably quite firm and essentially rock hard and likely chronically inflamed. Whether or not neoplasm exists is uncertain, but final pathology will be able to tell that of course. Irrigation was undertaken in the retrocecal area. The staple lines were hemostatic. Irrigation was undertaken. Excess irrigation fluid suctioned free. Given the extent of dissection, a drain was deemed advisable through the right lower quadrant port site, a 7 mm flat Mick drain was manipulated into position. Unfortunately, upon removal of the trocar site, persistent oozing of blood into the peritoneal cavity through the trocar site was noted. The drain was removed and the port site was closed with a Juancho Neil 0 Vicryl technique allowed for good hemostasis. Lateral to this area, another 5 mm trocar was passed into the peritoneal cavity through which the 7 mm Mick drain was placed and positioned optimally behind the cecum. This secured the skin with a nylon Electronically Signed By: VIOLETTA MOORE MD 08/22/24 0747 PATIENT NAME: TROY CABALLERO OPERATIVE REPORT DATE OF : [birth year] REPORT #: [id number] PHYSICIAN: VIOLETTA MOORE MD PCP: SHAY LOFTON PA-C REPORT IS CONFIDENTIAL AND NOT TO BE RELEASED WITHOUT AUTHORIZATION [facility] [address] [place] [id number] Signed suture. It was later attached to bulb suction. Irrigation was undertaken. Excess irrigation fluid was suctioned free. The camera was replaced. The umbilical port site and epigastric port were removed showing good hemostasis. The umbilical port was removed. The midline fascia was reapproximated with interrupted 0 Vicryl suture followed by 0 PDS suture. A 10 mL of 0.25% Marcaine with epinephrine was injected locally. The skin was closed with an interrupted 3-0 Vicryl. Steri-Strips were applied. The patient was ultimately extubated and transferred to the recovery room in good condition having suffered no complications. Sponge, needle, and instrument counts reported as correct x3. The operation was prolonged complicated and difficult lasting 3 times longer than usual related to severe inflammatory conditions and her morbid obesity and advanced pathologic condition of the appendix. MD BOY Perea/JANIYA /[id number] cc: TAMIKA Morris Dr. [facility] Copies: SHAY LOFTON PA-C ~ Electronically Signed By: VIOLETTA MOORE MD 08/22/24 0747 PATIENT NAME: FEDERICOWANDAAshli STREETER OPERATIVE REPORT DATE OF : [birth year] REPORT #: [id number] PHYSICIAN: VIOLETTA MOORE MD PCP: SHAY LOFTON PA-C REPORT IS CONFIDENTIAL AND NOT TO BE RELEASED WITHOUT AUTHORIZATION
--- NOTE | 2024-08-22 07:47 | HP ---
[facility] [place] [facility] [address], [place] [address] Signed ADMISSION DATE: 08/19/2024 REASON FOR ADMISSION: Acute appendicitis. HISTORY OF PRESENT ILLNESS: This morbidly obese 28-year-old white woman with BMI of 49.2, had beginnings of lower abdominal pain yesterday. She presented to the emergency room where she was evaluated by Dr. John Lacey and found to have tenderness in the right lower abdomen. Evaluation included a CT scan of the abdomen which showed findings highly consistent with acute appendicitis. Quite notably her white count is normal at 7.9. Chem profile normal. Urinalysis negative and beta HCG reported as negative. CT scan finding did confirm acute appendicitis without evidence of rupture or abscess formation and minimal free pelvic fluid. There was a malpositioned IUD noted and low-attenuation lesion consistent with cyst at the level of the right ovary. It was 4.9 cm. She is admitted for further evaluation and care. PAST MEDICAL HISTORY: Notable for x2. She does not smoke nor has she ever. She does have migraine history. ALLERGIES: Include ibuprofen (hives and swelling). MEDICATIONS: She takes no medications chronically. SOCIAL HISTORY: She is not . She has two children as noted, ages four and nine. 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 REVIEW OF SYSTEMS: She denies any shortness of breath or chest pain. She has had no dysphagia or dysuria. Denies any hematemesis or blood per rectum. PHYSICAL EXAMINATION: GENERAL: Morbidly obese white woman who looks to be reasonably comfortable. VITAL SIGNS: Height is 5 feet 11 inches, weight is 160 kg, BMI of 49.2. NECK: Trachea is midline. CHEST: Clear. HEART: Regular without murmur. Electronically Signed By: VIOLETTA MOORE MD 08/22/24 0747 PATIENT NAME: TROY CABALLERO HISTORY AND PHYSICAL DATE OF : [birth year] REPORT #: [id number] PHYSICIAN: VIOLETTA MOORE MD PCP: SHAY LOFTON PA-C REPORT IS CONFIDENTIAL AND NOT TO BE RELEASED WITHOUT AUTHORIZATION [facility] [place] [facility] [address], [place] [address] Signed ABDOMEN: Obese, but soft. Rovsing sign is negative. There is marked tenderness in right lower quadrant. EXTREMITIES: Show no clubbing, cyanosis, or edema. ASSESSMENT: The patient has acute appendicitis based on CT and clinical criteria. Fluid resuscitation is underway. IV antibiotics will be given including Flagyl and Ancef. I would recommend appendectomy today this evening. The risk of bleeding, infection, need for open procedure and other unforeseen complications including need for other operative interventions was reviewed. She understands and wished to proceed. She understands there are risks including, but not limited to bleeding and infection. MD BOY Perea/JANIYA /[id number] cc: Dr. John Lacey Copies: ~ Electronically Signed By: VIOLETTA MOORE MD 08/22/24 0747 PATIENT NAME: TROY CABALLERO HISTORY AND PHYSICAL DATE OF : [birth year] REPORT #: [id number] PHYSICIAN: VIOLETTA MOORE MD PCP: SHAY LOFTON PA-C REPORT IS CONFIDENTIAL AND NOT TO BE RELEASED WITHOUT AUTHORIZATION
== END 2024-08-20 15:26 | disposition home or self-care (01) | DRG 398 ==
LOC: ED 09:21 → DS 13:06 → DSVR 13:06 → ED 13:06 → MS 14:34
PROVIDERS: Emergency Medicine; ADMIT Surgery; ATTEND Surgery
PROC: 0DTJ4ZZ Resection of Appendix, Percutaneous Endoscopic Approach (ICD-10-PCS; principal; 2024-08-19 19:27)
DX: K35.80 Unspecified acute appendicitis (principal); Z68.42 Body mass index [BMI] 45.0-49.9, adult; E66.01 Morbid (severe) obesity due to excess calories; Z88.8 Allergy status to other drugs, medicaments and biological substances; Z79.899 Other long term (current) drug therapy; Z98.890 Other specified postprocedural states
CPT/HCPCS: 00840; 36415; 74177; 80048; 80053; 81001; 83690; 84703; 85025; J0131; J0330; J0690; J1100; J1171; J2003; J2250; J2270; J2405; J2704; J2765; J3010; J3490; J7121; Q9967